=== PATIENT | female | born 1985 | race African-American/Black ===

== ENCOUNTER 2017-01-17 02:05 | Emergency (ER) | payer OTHER ==
[~2017-01-17] VITALS: Ht 167.6 cm; Wt 91.0 kg
[2017-01-17 02:08] VITALS: BP 136/89; PULSE 76; RESP 16; TEMP 98.5; O2SAT 100
[2017-01-17] MEDS ORDERED: DEXAMETHASONE SOD PHOS 20 MG/5 ML VIAL IM ONE (02:45)
[2017-01-17] MEDS ORDERED: KETOROLAC TROMETHAMINE 60 MG/2 ML (IM) VIAL IM ONE (02:45)
[2017-01-17] MEDS ORDERED: ORPHENADRINE INJ 60 MG/2 ML AMP IM ONE (02:45)
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
[2017-01-17] MEDS ORDERED: CYCL1TAB29 PO (03:59)
[2017-01-17] MEDS ORDERED: IBUP800T23 PO (03:59)
[2017-01-17] MEDS ORDERED: PRED50 PO (03:59)
== END 2017-01-17 04:08 | disposition home or self-care (01) ==
LOC: NEPD 02:05
DX: M62.838 Other muscle spasm (principal); W18.49XA Other slipping, tripping and stumbling without falling, initial encounter; Y92.003 Bedroom of unspecified non-institutional (private) residence as the place of occurrence of the external cause
CPT/HCPCS: 96372; 99284; J1100; J1885; J2360

== ENCOUNTER 2017-10-15 15:11 | Emergency (ER) | payer OTHER ==
[~2017-10-15] VITALS: Ht 165.1 cm; Wt 103.0 kg
[~2017-10-15 15:11] MED LIST: CYCL10TA PO; IBUP1TAB7 PO; PRED50 PO
[2017-10-15 15:19] VITALS: BP 159/69; PULSE 81; RESP 17; TEMP 98.1; O2SAT 97
--- NOTE | 2017-10-15 15:52 | RADRPT ---
EXAM DATE/TIME: 10/15/2017 15:36 [place] COMPARISON: No previous studies available for comparison. INDICATIONS : Pain post fall. MEDICAL HISTORY : None. SURGICAL HISTORY : None. ENCOUNTER: Initial ACUITY: 1 day PAIN SCORE: 10/10 LOCATION: Left Wrist. FINDINGS: Three view examination of the left wrist demonstrates no soft tissue swelling, dislocation, or fractu re. The carpal bones are in normal alignment. The joint spaces are maintained. Bony mineralization is normal. CONCLUSION: Unremarkable examination of the left wrist. Jesu Galindo MD on October 15, 2017 at 15:49 Board Certified Radiologist. This report was verified electronically.
--- NOTE | 2017-10-15 17:50 | PD ---
HPI Chief Complaint: Injury Time Seen by Provider: 17:43 Travel History International Travel<30 days: No Contact w/Intl Traveler<30days: No Traveled to known affect area: No History of Present Illness HPI 32-year-old female here for evaluation of left wrist pain. The patient reports that yesterday while lifting up a heavy duffel bag she twisted her wrist and felt immediate pain. Pain is moderate to severe, worse with movement and palpation, improved with rest. She has not taken anything for the pain. No paresthesias. No other injuries. She is right-hand dominant. [facility] Past Medical History Medical History: Denies Significant Hx Diminished Hearing: No Tetanus Vaccination: < 5 Years Influenza Vaccination: No ?: Unknown LMP: 09/17 : 2 Para: 2 Past Surgical History Oral Surgery: Yes Other Surgery: Yes (DENTAL EXTRACTIONS) Social History Alcohol Use: No Tobacco Use: No Substance Use: Yes (OCCASIONAL MARIJUANA) Allergies-Medications (Allergen,Severity, Reaction): Coded Allergies: penicillin G (Unverified Allergy, Mild, childhood reaction, 10/15/17) Reported Meds & Prescriptions Reported Meds & Active Scripts Active No Active Prescriptions or Reported Medications Review of Systems Except as stated in HPI: all other systems reviewed are Neg Physical Exam Narrative GENERAL: Well-developed, well-nourished, comfortable, no apparent distress. SKIN: Focused skin assessment warm/dry. CARDIOVASCULAR: Regular rate and rhythm. Bilateral distal radius pulses are brisk and equal. RESPIRATORY: No accessory muscle use. Clear to auscultation. Breath sounds equal bilaterally. GASTROINTESTINAL: Abdomen soft, non-tender, nondistended. Hepatic and splenic margins not palpable. MUSCULOSKELETAL: Left wrist with mild edema dorsally with normal range of motion , diffuse tenderness, no obvious bony deformity. All compartments in the left upper extremity are supple. Left hand is without deformity, without tenderness , with normal range of motion. Left arm is neurovascularly intact. NEUROLOGICAL: Awake and alert. No obvious cranial nerve deficits. Motor grossly within normal limits. Normal speech. PSYCHIATRIC: Appropriate mood and affect; insight and judgment normal. Data Data Last Documented VS Vital Signs Date Time Temp Pulse Resp B/P (MAP) Pulse Ox O2 Delivery O2 Flow Rate FiO2 10/15/17 15:19 98.1 81 17 159/69 (99) 97 Orders Orders Wrist, Complete ([id number]) (10/15/17 ) Ibuprofen (Motrin) (10/15/17 18:00) Splint Or Brace Apply/Monitor (10/15/17 17:47) MDM Medical Decision Making Medical Screen Exam Complete: Yes Emergency Medical Condition: Yes Differential Diagnosis Left wrist sprain versus fracture Narrative Course Left wrist x-ray read as unremarkable exam of the left wrist. Patient likely has a left wrist sprain. She will be placed in a Velcro wrist splint. PMD/orthopedic follow-up this week. She was advised on when to return to the emergency department. She verbalizes understanding and agreement with plan. Diagnosis Primary Impression: Left wrist sprain Qualified Codes: S63.502A - Unspecified sprain of left wrist, initial encounter Referrals: Don Allison MD 1 week Orthopedist Primary Care Physician 3 days Additional Instructions: Follow-up with a primary care physician or orthopedist Dr. Allison this week. Return to the emergency department for worsening symptoms or any other concerns. Scripts No Active Prescriptions or Reported Meds Disposition: 01 DISCHARGE HOME Condition: Stable Brando Russell MD Oct 15, 2017 17:50
[2017-10-15] MEDS ORDERED: IBUPROFEN 600 MG TAB PO ONE (18:00)
== END 2017-10-15 18:09 | disposition home or self-care (01) ==
LOC: NEPD 15:11
DX: S63.502A Unspecified sprain of left wrist, initial encounter (principal); X50.0XXA Overexertion from strenuous movement or load, initial encounter; Z88.0 Allergy status to penicillin
CPT/HCPCS: 73110; 99283; L3908

== ENCOUNTER 2018-07-12 10:54 | Inpatient (IN) ==
[2018-07-12] MEDS ORDERED: Clindamycin 600 mg/NS Premix 600 MG/50 ML PIGGYBACK IV.SIG PRN (13:16)
[2018-07-12] MEDS ORDERED: Citric Acid/Sodium Citrate Liq 30 ML UDC PO SCH (13:30)
[2018-07-12 14:57] LABS: Baso % (Auto) 0.5 % (0.0-2.0); Eos % (Auto) 0.4 % (0.0-4.0); Hematocrit 34.8 % (35.0-46.0); Hemoglobin 11.9 gm/dL (11.6-15.3); Lymph # (Auto) 1.5 th/mm3 (1.0-4.8); Lymph % (Auto) 16.9 % (9.0-44.0); Mean Corpuscular HGB Conc 34.3 % (32.0-36.0); Mean Corpuscular Hemoglobin 32.4 pg (27.0-34.0); Mean Corpuscular Volume 94.5 fL (80.0-100.0); Mean Platelet Volume 9.9 fL (7.0-11.0); Mono # (Auto) 0.7 th/mm3 (0.0-0.9); Mono % (Auto) 7.9 % (0.0-8.0); Neut # (Auto) 6.5 th/mm3 (1.8-7.7); Neut % (Auto) 74.3 % (16.0-70.0); Platelet Count 264 th/mm3 (150-450); Red Blood Count 3.68 mil/mm3 (4.00-5.30); Red Cell Distribution Width 15.4 % (11.6-17.2); White Blood Count 8.8 th/mm3 (4.0-11.0)
[2018-07-12 15:44] LABS: Amphetamine Screen,Urine Neg (Neg); Barbiturate Screen,Urine Neg (Neg); Cannabinoid Screen,Urine Pos (Neg); Cocaine Screen,Urine Neg (Neg)
[2018-07-12 15:47] LABS: Bacteria,Urine Rare /hpf; Bilirubin,Urine Negative (Negative); Clarity,Urine Clear (Clear); Color,Urine Yellow (Yellw/Straw); Glucose,Urine (UA) Negative (Negative); Leukocyte Esterase,Urine Negative (Negative); Mucus,Urine Few /lpf (Occasional); Nitrite,Urine Negative (Negative); Specific Gravity,Urine 1.006 (1.002-1.035); Squamous Epithelial Cell,Urine 1 /hpf (0-5)
[2018-07-12 15:53] LABS: Opiate Screen,Urine Neg (Neg)
[2018-07-12] MEDS ORDERED: Influenza (Quadrivalent) Vaccine 0.5 ML Syringe IM ONE (16:00)
[2018-07-12] MEDS ORDERED: Morphine Sulfate PF Inj 5 MG/10 ML Ampul ONE (18:24)
--- NOTE | 2018-07-12 19:06 | P.HPOB ---
History of Present Illness Primary Care Physician: Hakeem Dillard MD Chief Complaint: CS due to IUGR and Breech History of Present Illness: 33 yr old female at 37/0 IUGR, breech presentation, coming from OB diagnostics due to non reactive NST with decelerations. Pt is doing well. Scared due to previous NVD at term, and never PMH: Denies PSx: denies Allergies: Penicillin Medicines: none Social: denies drinking, smoking cigarettes, smokes marijuana occasionally. Weeks Gestation:: 37 Para: 2 : 3 - Inpatient Certification I certify that the inpatient services were ordered in accordance with Medicare regulations governing the order. This includes certification that hospital inpatient services are reasonable and necessary and in the case of services not specified as inpatient-only under 42 CFR 419.22(n), that they are appropriately provided as inpatient services in accordance to with the 2-midnight benchmark under 43 CFR 412.3(e) Estimated Total Length of Stay (Days): 3 Plans for Post Hospital Care: Home Review of Systems All other systems reviewed negative except as stated in HPI PMFSH - Medical / Surgical Hx Neg / Unobtainable Medical Problems Denied: Yes - Social History I have reviewed the patient's Social History: Yes - Tobacco History Second Hand Smoke Exposure: No Tobacco Use In Past 30 Days: No - Travel History Recent Travel in the [place] Within the Last 8 Weeks: No Recent Travel Out of the Country Within the Last 8 Weeks: No - Immunization History Hx Influenza Vaccine This Season: No Medications and Allergies Allergies Allergy/AdvReac Type Severity Reaction Status Date / Time penicillin G Allergy Mild childhood Verified 07/12/18 10:58 reaction Home Medications Medication Instructions Recorded Confirmed Type No Known Home Medications 07/12/18 07/12/18 History Active Medications: Active Medications Citric Acid/Sodium Citrate (Sodium Citrate/Citric Acid Liq) 30 ml PO SPOUTING INSTALLER ANDI Stop: 07/16/18 13:29 Clindamycin/Sodium Chloride (Cleocin 600 Mg/Ns Premix) 600 mg in 50 mls @ 100 mls/hr IV.SIG SPOUTING INSTALLER PRN PRN Reason: PRIOR TO PROCEDURE Stop: 07/16/18 13:15 Lactated Ringer's (Lr 1000 Ml Inj) 1,000 mls @ 150 mls/hr IV.CONT .Q6H40M ANDI Last Admin: 07/12/18 14:13 Dose: 150 mls/hr Exam Vital signs: Vital Signs 07/12/18 11:03 07/12/18 11:04 Temperature 98.9 F Pulse Rate 94 H Respiratory Rate 17 Blood Pressure 142/81 H Intake & Output 07/12/18 07/12/18 07/13/18 06:59 18:59 06:59 Weight 99.79 kg Other: Weight On Admission 99.79 kg Narrative: GENERAL: Well-nourished, well-developed patient. SKIN: Warm and dry. HEAD: Normocephalic and atraumatic. EYES: No scleral icterus. No injection or drainage. ENT: No nasal drainage noted. Mucous membranes pink. Airway patent. NECK: Supple, trachea midline. No JVD. CARDIOVASCULAR: Regular rate and rhythm without murmurs, gallops, or rubs. RESPIRATORY: Breath sounds equal bilaterally. No accessory muscle use. ABDOMEN/GI: Abdomen soft, non-tender, bowel sounds present, no rebound, no guarding FHT's: Category: 1 Baseline: 130 Reactive: yes Variability: moderate EXTREMITIES: No cyanosis or edema. BACK: Nontender without obvious deformity. No CVA tenderness. NEUROLOGICAL: Awake and alert. Motor and sensory grossly within normal limits. Normal speech. Results - Labs CBC & Chem 7: 07/12/18 14:10 Labs: Laboratory Results - last 24 hr 07/12/18 07/12/18 07/12/18 12:30 12:30 14:10 WBC 8.8 RBC 3.68 L Hgb 11.9 Hct 34.8 L MCV 94.5 MCH 32.4 MCHC 34.3 RDW 15.4 Plt Count 264 MPV 9.9 Neut % (Auto) 74.3 H Lymph % (Auto) 16.9 Bucks % (Auto) 7.9 Eos % (Auto) 0.4 Baso % (Auto) 0.5 Neut # (Auto) 6.5 Lymph # (Auto) 1.5 Bucks # (Auto) 0.7 Eos # (Auto) 0.0 Baso # (Auto) 0.0 WBC Differential . Differential Comment Auto diff final Urine Color Yellow Urine Clarity Clear Urine pH 7.0 Ur Specific Amma 1.006 Urine Protein Negative Urine Glucose (UA) Negative Urine Ketones Negative Urine Occult Blood Negative Urine Nitrate Negative Urine Bilirubin Negative Urine Urobilinogen Less than 2 Ur Leukocyte Esterase Negative Urine RBC 1 Urine WBC 1 Ur Squamous Epith Cells 1 Urine Bacteria Rare H Urine Mucus Few H Micro UA Comment Culture not ind Ur Microscopic Review Not Reportable Urine Culture Comments Culture not ind Urine Opiates Screen Neg Ur Barbiturates Screen Neg Ur Amphetamines Screen Neg U Benzodiazepines Scrn Neg Urine Cocaine Screen Neg U Cannabinoids Screen Pos H Blood Type Antibody Screen 07/12/18 14:10 WBC RBC Hgb Hct MCV MCH MCHC RDW Plt Count MPV Neut % (Auto) Lymph % (Auto) Bucks % (Auto) Eos % (Auto) Baso % (Auto) Neut # (Auto) Lymph # (Auto) Bucks # (Auto) Eos # (Auto) Baso # (Auto) WBC Differential Differential Comment Urine Color Urine Clarity Urine pH Ur Specific Amma Urine Protein Urine Glucose (UA) Urine Ketones Urine Occult Blood Urine Nitrate Urine Bilirubin Urine Urobilinogen Ur Leukocyte Esterase Urine RBC Urine WBC Ur Squamous Epith Cells Urine Bacteria Urine Mucus Micro UA Comment Ur Microscopic Review Urine Culture Comments Urine Opiates Screen Ur Barbiturates Screen Ur Amphetamines Screen U Benzodiazepines Scrn Urine Cocaine Screen U Cannabinoids Screen Blood Type O Positive Antibody Screen Negative Caprini VTE Risk Assessment Caprini VTE Risk Assessment: No/Low Risk (score <= 1) Caprini Risk Assessment Model: Point Value = 1 Point Value = 2 Point Value = 3 Point Value = 5 Age 41-60 Minor surgery BMI > 25 kg/m2 Swollen legs Varicose veins or History of unexplained or recurrent spontaneous Oral contraceptives or hormone replacement Sepsis (< 1 month) Serious lung disease, including pneumonia (< 1 month) Abnormal pulmonary function Acute myocardial infarction Congestive heart failure (< 1 month) History of inflammatory bowel disease Medical patient at bed rest Age 61-74 Arthroscopic surgery Major open surgery (> 45 min) Laparoscopic surgery (> 45 min) Malignancy Confined to bed (> 72 hours) Immobilizing plaster cast Central venous access Age >= 75 History of VTE Family history of VTE Factor V Leiden Prothrombin [id number] Lupus anticoagulant Anticardiolipin antibodies Elevated serum homocysteine Heparin-induced thrombocytopenia Other congenital or acquired thrombophilia Stroke (< 1 month) Elective arthroplasty Hip, pelvis, or leg fracture Acute spinal cord injury (< 1 month) Prophylaxis Regimen: Total Risk Factor Score Risk Level Prophylaxis Regimen 0-1 Low Early ambulation 2 Moderate Order ONE of the following: *Sequential Compression Device (SCD) *Heparin 5000 units SQ BID 3-4 Higher Order ONE of the following medications: *Heparin 5000 units SQ TID *Enoxaparin/Lovenox 40 mg SQ daily (WT < 150 kg, CrCl > 30 mL/min) *Enoxaparin/Lovenox 30 mg SQ daily (WT < 150 kg, CrCl > 10-29 mL/min) *Enoxaparin/Lovenox 30 mg SQ BID (WT < 150 kg, CrCl > 30 mL/min) AND/OR *Sequential Compression Device (SCD) 5 or more Highest Order ONE of the following medications: *Heparin 5000 units SQ TID (Preferred with Epidurals) *Enoxaparin/Lovenox 40 mg SQ daily (WT < 150 kg, CrCl > 30 mL/min) *Enoxaparin/Lovenox 30 mg SQ daily (WT < 150 kg, CrCl > 10-29 mL/min) *Enoxaparin/Lovenox 30 mg SQ BID (WT < 150 kg, CrCl > 30 mL/min) AND *Sequential Compression Device (SCD) Assessment and Plan - Diagnosis (1) IUGR (intrauterine growth restriction) Status: Acute (2) 37 weeks gestation of Code(s): Z3A.37 - 37 weeks gestation of Status: Acute - Plan 33 yr old female at 37/0 admitted for CS due to breech and IUGR with non reactive NST. Plan: - Admit to L&D - CS this afternoon - Penicillin allergy, will use clindamycin - GBS negative Pt seen and discussed with Dr. Molina - Attending Attestation Attending note: Patient seen examined evaluated history obtained-she was referred from OB diagnostics secondary to nonreactive heart rate-noted to have a deceleration and subsequently advised to have 2 hours of continuous monitor. We then received a phone call [facility] advises delivery. Patient was subsequently counseled for delivery secondary to breech presentation- alternatives benefits complications including but not limited to injury to the bowel bladder nerves blood vessels ureters any structures in the abdomen or pelvis infection hemorrhage morbidity mortality with surgery under anesthesia related procedures even remote possibility of risk of injury patient expressed verbal understanding. Secondary to full stomach and this is not an emergent case the biophysical was otherwise reassuring plan to wait till the stomach is empty and proceed with delivery
[2018-07-12] MEDS ORDERED: Glycopyrrolate Inj 1 MG/5 ML Syringe IV.PUSH ONE (19:25)
[2018-07-12] MEDS ORDERED: Phenylephrine/NS 1000 MCG/10ML Syringe IV.PUSH ONE (19:25)
[2018-07-12] MEDS ORDERED: Ketorolac Inj 30 MG/ML (IVP) Vial IV.PUSH ONE (19:25)
[2018-07-12] MEDS ORDERED: Oxytocin 30 Units/500ml Premix 30 UNITS/500 ML BAG IV.SIG ONE (20:53)
[2018-07-12] MEDS ORDERED: Zolpidem Tartrate 5 MG Tablet PO PRN (20:53)
[2018-07-12] MEDS ORDERED: Simethicone 80 MG Chew Tablet PO PRN (20:53)
[2018-07-12] MEDS ORDERED: Oxytocin 30 Units/500ml Premix 30 UNITS/500 ML BAG ONE (21:57)
--- NOTE | 2018-07-12 22:02 | P.OP ---
- Preoperative Diagnosis (1) IUGR (intrauterine growth restriction) (2) Non-reactive NST (non-stress test) (3) 37 weeks gestation of - Postoperative Diagnosis (1) IUGR (intrauterine growth restriction) (2) Non-reactive NST (non-stress test) (3) Delivery by section for footling breech presentation (4) 37 weeks gestation of Date of procedure: 07/12/18 Procedure: Primary low uterine segment transverse section Anesthesia: spinal Surgeon: Aishwarya Molina MD Mineral Economist: Rita Ortez Estimated blood loss (mL): 600 Pathology: none sent Operation and Findings: Patient presented to labor and delivery secondary to nonreactive NST-with a deceleration noted and OB diagnostics. Received a call from [facility] for delivery breech presentation patient aware will be delivery. Counseled on alternatives benefits complications please note documented in patient's history and physical. Patient was subsequently taken to the OR after informed consent obtained prepped and draped in normal sterile fashion. Pfannenstiel incision was made in the skin carried down to the underlying layer of fascia. The fascia was subsequently incised in the midline with a second knife. Extended laterally digitally. Superior aspect the fascia was grasped with Garland clamps x2 dissected under off from the underlying rectus muscle with curved Gonzalez scissors. The inferior aspect of the fascia was grasped with Steve clamps x2 dissected off from the underlying rectus muscle with care to avoid the bladder. The rectus muscle was gently blunt entrance into the peritoneum with care to avoid the bladder. The vesicouterine peritoneum was identified and bladder flap was created using Metzenbaum scissors and smooth pickup. [place] was placed. Incision on the uterus extended laterally digitally with care to avoid the vasculature. Amniotomy copious clear fluid. foot presenting with cord. Attempt to reduce the cord unsuccessful subsequently reached for the second foot. Both feet were subsequently grasped and then subsequently delivered to the level of the hips extension of the cord from the umbilicus. Continued to deliver to the level of the shoulders reduction of both arms delivered without incident. The vertex was noted to be significantly deflexed and subsequently flexed by merchandising assistant and from there able to deliver by placing pressure on the mandible and affect the delivery of the fetus. Delayed cord clamping. Viable infant male Apgars 5,6,7 ,and 8. Weight 5 pounds 12 ounces. Infant was handed to awaiting neonatology team. Cord blood collected. Placenta manually removed. Uterus cleared of all clot and debris. Uterus was delivered through the incision. Bilateral adnexa within normal. Proceeded to close the uterine incision with 1 chromic in a running locked fashion followed by second imbricating Lembert suture in its entirety. Good hemostasis noted. Once hemostasis was assured the uterus was repositioned into the pelvic abdominal cavity. Please note the paracolic gutters were cleared of all clot and debris prior to placing the uterus back into the pelvic abdominal cavity. The uterine incision was once again reevaluated noted to have good hemostasis. The fascia was closed with 1 Vicryl in a continuous fashion. Campers fascia was subsequently closed with interrupted 1 chromic [id number] sutures. The skin was closed with Monocryl on a Tej needle in its entirety. Patient tolerated procedure well sponge lap needle counts were noted to be correct x2. Patient taken to recovery room in stable condition. Baby to NICU for further monitoring
[2018-07-12] MEDS ORDERED: Naloxone Inj 0.4 MG/ML Vial IV.PUSH PRN (22:51)
[2018-07-13] MEDS ORDERED: Oxytocin 30 Units/500ml Premix 30 UNITS/500 ML BAG IV.SIG PRN (01:54)
[2018-07-13] MEDS: Senna/Docusate Sodium 8.6/50 MG Tablet PO PRN ×2 (04:17→23:29)
[2018-07-13 06:14] LABS: Baso % (Auto) 0.1 % (0.0-2.0); Hematocrit 30.8 % (35.0-46.0); Hemoglobin 10.2 gm/dL (11.6-15.3); Lymph # (Auto) 0.6 th/mm3 (1.0-4.8); Lymph % (Auto) 3.3 % (9.0-44.0); Mean Corpuscular HGB Conc 33.2 % (32.0-36.0); Mean Corpuscular Hemoglobin 31.4 pg (27.0-34.0); Mean Corpuscular Volume 94.6 fL (80.0-100.0); Mean Platelet Volume 9.3 fL (7.0-11.0); Mono # (Auto) 0.8 th/mm3 (0.0-0.9); Mono % (Auto) 4.4 % (0.0-8.0); Neut # (Auto) 15.9 th/mm3 (1.8-7.7); Neut % (Auto) 92.2 % (16.0-70.0); Platelet Count 245 th/mm3 (150-450); Red Blood Count 3.26 mil/mm3 (4.00-5.30); Red Cell Distribution Width 15.3 % (11.6-17.2); White Blood Count 17.3 th/mm3 (4.0-11.0)
--- NOTE | 2018-07-13 08:20 | P.PNOB ---
Subjective Interval history: 33 year old female s/p C/S at 37 wks gestation, POD1. AFVSS. Patient reports she is feeling well. Bleeding is decreasing and pain is well- controlled. Baby currently in the NICU. Ambulating without difficulties. She is tolerating a diet without nausea or vomiting. She has not had a bowel movement. She has not passed gas. Denies chest pain, dysuria, shortness of breath, or calf pain. Objective Vital Signs/I&O: Vital Signs 07/12/18 11:03 07/12/18 11:04 07/12/18 21:00 Temperature 98.9 F 97.9 F Pulse Rate 94 H 72 Respiratory Rate 18 Blood Pressure 142/81 H 115/57 L 07/12/18 21:18 07/12/18 21:32 07/12/18 21:48 Temperature Pulse Rate 79 77 75 Respiratory Rate 18 Blood Pressure 122/72 120/75 127/63 07/12/18 22:45 07/13/18 03:00 07/13/18 05:42 Temperature 98.5 F 98.6 F 98.2 F Pulse Rate 81 70 80 Respiratory Rate Blood Pressure 137/84 150/88 H 118/85 Intake & Output 07/12/18 07/13/18 07/13/18 18:59 06:59 18:59 Weight 99.79 kg Other: Weight On Admission 99.79 kg Result Diagrams: 07/13/18 05:04 Objective Remarks: GENERAL: Well-nourished, well-developed patient. CARDIOVASCULAR: Regular rate and rhythm without murmurs, gallops, or rubs. RESPIRATORY: Breath sounds equal bilaterally. No accessory muscle use. ABDOMEN/GI: Abdomen soft, non-tender, bowel sounds present. Incision: Covered in bandage Fundus: Firm, non-tender at umbilicus. GENITOURINARY: Light to moderate bleeding. EXTREMITIES: No cyanosis or edema, non-tender, without signs of DVT. Medications and IVs: Active Medications Citric Acid/Sodium Citrate (Sodium Citrate/Citric Acid Liq) 30 ml PO [employer] ANDI Stop: 07/16/18 13:29 Last Admin: 07/12/18 19:14 Dose: 30 ml Diphenhydramine HCl (Benadryl Inj) 25 mg IV.PUSH Q6H PRN PRN Reason: MILD TO MODERATE ITCHING Stop: 07/13/18 22:50 Last Admin: 07/13/18 06:07 Dose: 25 mg Diphenhydramine HCl (Benadryl) 50 mg PO Q6H PRN PRN Reason: MILD TO MODERATE ITCHING Stop: 07/13/18 22:50 Diphtheria/Pertussis/Tetanus Vacc (Boostrix Vaccine Inj) 0.5 ml IM .ONCE ONE Stop: 07/13/18 16:01 Clindamycin/Sodium Chloride (Cleocin 600 Mg/Ns Premix) 600 mg in 50 mls @ 100 mls/hr IV.SIG [employer] PRN PRN Reason: PRIOR TO PROCEDURE Stop: 07/16/18 13:15 Last Admin: 07/12/18 19:13 Dose: 100 mls/hr Lactated Ringer's (Lr 1000 Ml Inj) 1,000 mls @ 150 mls/hr IV.CONT .Q6H40M [facility] Last Admin: 07/13/18 04:26 Dose: Not Given Lactated Ringer's (Lr 1000 Ml Inj) 1,000 mls @ 100 mls/hr IV.CONT .Q10H [facility] Stop: 07/13/18 21:53 Last Admin: 07/13/18 04:15 Dose: 100 mls/hr Oxytocin (Pitocin 30 Units/Ns 500 Ml Premix) 30 units in 500 mls @ 100 mls/hr IV.SIG UNSCH PRN PRN Reason: Heavy bleeding Measles/Mumps/Rubella Vaccine Live (M-M-R Ii Vaccine Inj) 0.5 ml SQ .ONCE ONE Stop: 07/13/18 16:01 Miscellaneous Information (Misc Nursing Information) 1 each OTHER UNSCH PRN PRN Reason: SEE LABEL COMMENTS Stop: 07/13/18 22:50 Miscellaneous Information (Misc Nursing Information) 1 each OTHER UNSCH PRN PRN Reason: SEE LABEL COMMENTS Stop: 07/13/18 22:50 Naloxone HCl (Narcan Inj) 0.4 mg IV.PUSH UNSCH PRN PRN Reason: SEE LABEL COMMENTS Stop: 07/13/18 22:50 Ondansetron HCl (Zofran Inj) 4 mg IV.PUSH Q6H PRN PRN Reason: NAUSEA OR VOMITING Oxycodone/Acetaminophen (Percocet 5/325 Mg) 1 tab PO Q4H PRN PRN Reason: PAIN SCALE 3 TO 5 Last Admin: 07/13/18 04:16 Dose: 1 tab Oxycodone/Acetaminophen (Percocet 5/325 Mg) 2 tab PO Q4H PRN PRN Reason: PAIN SCALE 6 TO 10 Senna/Docusate Sodium (Yasmeen-Colace) 2 tab PO Q12H PRN PRN Reason: CONSTIPATION Last Admin: 07/13/18 04:17 Dose: 2 tab Simethicone (Mylicon Chew) 80 mg PO QID PRN PRN Reason: FLATULENCE Sodium Chloride (Ns Flush) 2 ml IV.FLUSH BID ANDI Last Admin: 07/12/18 22:52 Dose: Not Given Sodium Chloride (Ns Flush) 2 ml IV.FLUSH PRN PRN PRN Reason: FLUSH AFTER USING IV ACCESS Last Admin: 07/13/18 06:08 Dose: 2 ml Zolpidem Tartrate (Ambien) 5 mg PO HS PRN PRN Reason: INSOMNIA Assessment and Plan - Diagnosis (1) S/P Code(s): Z98.891 - History of uterine scar from previous surgery Status: Acute - Plan 33 yo female s/p C/S due to IUGR and breech, POD 1 - AFVSS - Continue routine care - Motrin and Percocet PRN pain - Encourage OOB - Pelvic rest x 6 wks. Will need 1 week incision check. - Contraception: Undecided - Anticipate D/C 1-[address] Molina
[2018-07-13] MEDS: Ibuprofen 600 MG Tablet PO PRN ×2 (14:14→23:25)
[2018-07-13] MEDS ORDERED: Measles/Mumps/Rubella Vaccine Inj 0.5 ML Vial SQ ONE (16:00)
[2018-07-13] MEDS ORDERED: Diphtheria/Tetanus/Pertussis Vaccine Inj 0.5 ML Syringe IM ONE (16:00)
--- NOTE | 2018-07-14 07:17 | P.PNOB ---
Subjective Interval history: 33 year old female s/p C/S at 37 wks gestation, POD2. AFVSS. Patient reports she is feeling well. Bleeding is decreasing and pain is well- controlled. Baby currently in the NICU. Ambulating without difficulties. She is tolerating a diet without nausea or vomiting. She has not had a bowel movement. She has passed gas. Denies chest pain, dysuria, shortness of breath, or calf pain. Objective Vital Signs/I&O: Vital Signs 07/13/18 07:55 07/13/18 12:00 07/13/18 16:00 Temperature 98.0 F 98.9 F 98.6 F Pulse Rate 68 80 76 Respiratory Rate 16 18 18 Blood Pressure 133/68 133/68 114/64 07/13/18 20:00 Temperature 98.3 F Pulse Rate 82 Respiratory Rate 18 Blood Pressure 140/77 Result Diagrams: 07/13/18 05:04 Objective Remarks: GENERAL: Well-nourished, well-developed patient. CARDIOVASCULAR: Regular rate and rhythm without murmurs, gallops, or rubs. RESPIRATORY: Breath sounds equal bilaterally. No accessory muscle use. ABDOMEN/GI: Abdomen soft, non-tender, bowel sounds present. Incision: Clean, dry and intact. Fundus: Firm, non-tender at umbilicus. GENITOURINARY: Light to moderate bleeding. EXTREMITIES: No cyanosis or edema, non-tender, without signs of DVT. Medications and IVs: Active Medications Citric Acid/Sodium Citrate (Sodium Citrate/Citric Acid Liq) 30 ml PO GANG R[employer]ER [facility] Stop: 07/16/18 13:29 Last Admin: 07/12/18 19:14 Dose: 30 ml Clindamycin/Sodium Chloride (Cleocin 600 Mg/Ns Premix) 600 mg in 50 mls @ 100 mls/hr IV.SIG GANG RIDER PRN PRN Reason: PRIOR TO PROCEDURE Stop: 07/16/18 13:15 Last Admin: 07/12/18 19:13 Dose: 100 mls/hr Lactated Ringer's (Lr 1000 Ml Inj) 1,000 mls @ 150 mls/hr IV.CONT .Q6H40M [facility] Last Admin: 07/13/18 04:26 Dose: Not Given Oxytocin (Pitocin 30 Units/Ns 500 Ml Premix) 30 units in 500 mls @ 100 mls/hr IV.SIG UNSCH PRN PRN Reason: Heavy bleeding Ibuprofen (Motrin) 600 mg PO Q8H PRN PRN Reason: PAIN SCALE 1-2 OR TEMP> 100.5F Last Admin: 07/13/18 23:25 Dose: 600 mg Ondansetron HCl (Zofran Inj) 4 mg IV.PUSH Q6H PRN PRN Reason: NAUSEA OR VOMITING Oxycodone/Acetaminophen (Percocet 5/325 Mg) 1 tab PO Q4H PRN PRN Reason: PAIN SCALE 3 TO 5 Last Admin: 07/13/18 09:36 Dose: 1 tab Oxycodone/Acetaminophen (Percocet 5/325 Mg) 2 tab PO Q4H PRN PRN Reason: PAIN SCALE 6 TO 10 Last Admin: 07/14/18 03:53 Dose: 2 tab Senna/Docusate Sodium (Yasmeen-Colace) 2 tab PO Q12H PRN PRN Reason: CONSTIPATION Last Admin: 07/13/18 23:29 Dose: 2 tab Simethicone (Mylicon Chew) 80 mg PO QID PRN PRN Reason: FLATULENCE Sodium Chloride (Ns Flush) 2 ml IV.FLUSH BID ANDI Last Admin: 07/13/18 23:30 Dose: 2 ml Sodium Chloride (Ns Flush) 2 ml IV.FLUSH PRN PRN PRN Reason: FLUSH AFTER USING IV ACCESS Last Admin: 07/13/18 06:08 Dose: 2 ml Zolpidem Tartrate (Ambien) 5 mg PO HS PRN PRN Reason: INSOMNIA Assessment and Plan - Diagnosis (1) S/P Code(s): Z98.891 - History of uterine scar from previous surgery Status: Acute - Plan 33 yo female s/p C/S due to IUGR and breech, POD 2 - AFVSS - Continue routine care - Motrin and Percocet PRN pain - Encourage OOB - Pelvic rest x 6 wks. Will need 1 week incision check. - Contraception: IUD, will discuss with OB provider - Anticipate D/C tomorrow conchis Whitaker
[2018-07-14] MEDS: Ibuprofen 600 MG Tablet PO PRN ×2 (10:02→19:12)
[2018-07-14] MEDS: Senna/Docusate Sodium 8.6/50 MG Tablet PO PRN (14:41)
[2018-07-15] MEDS: Ibuprofen 600 MG Tablet PO PRN ×2 (04:19→14:06)
[2018-07-15] MEDS: Senna/Docusate Sodium 8.6/50 MG Tablet PO PRN ×2 (08:47→09:19)
--- NOTE | 2018-07-15 09:11 | P.PNOB ---
Subjective Post op day: 3 Interval history: Postoperative day number 3. AFVSS overnight. Pain well-controlled. Incision not draining. Decreased lochia. Denies dysuria. No breast tenderness. She is feeding the baby via bottle. Appetite good. No nausea or vomiting. + flatus. no bowel movement. Ambulating well. Denies calf pain, shortness of breath, or cough. Otherwise, she is doing well this morning and has no other complaints. Objective Vital Signs/I&O: Vital Signs 07/14/18 20:00 Temperature 97.9 F Pulse Rate 85 Respiratory Rate 18 Blood Pressure 143/84 H Result Diagrams: 07/13/18 05:04 Objective Remarks: GENERAL: Well-nourished, well-developed patient. CARDIOVASCULAR: Regular rate and rhythm without murmurs, gallops, or rubs. RESPIRATORY: Breath sounds equal bilaterally. No accessory muscle use. ABDOMEN/GI: Abdomen soft, non-tender, bowel sounds present. Incision: Clean, dry and intact. Fundus: Firm, non-tender at umbilicus. GENITOURINARY: Light to moderate bleeding. EXTREMITIES: No cyanosis or edema, non-tender, without signs of DVT. Medications and IVs: Active Medications Citric Acid/Sodium Citrate (Sodium Citrate/Citric Acid Liq) 30 ml PO VAMP [employer]ROATER [facility] Stop: 07/16/18 13:29 Last Admin: 07/12/18 19:14 Dose: 30 ml Diphenhydramine HCl (Benadryl) 50 mg PO Q6H PRN PRN Reason: itching Last Admin: 07/14/18 10:03 Dose: 50 mg Clindamycin/Sodium Chloride (Cleocin 600 Mg/Ns Premix) 600 mg in 50 mls @ 100 mls/hr IV.SIG VAMP THROATER PRN PRN Reason: PRIOR TO PROCEDURE Stop: 07/16/18 13:15 Last Admin: 07/12/18 19:13 Dose: 100 mls/hr Lactated Ringer's (Lr 1000 Ml Inj) 1,000 mls @ 150 mls/hr IV.CONT .Q6H40M [facility] Last Admin: 07/13/18 04:26 Dose: Not Given Oxytocin (Pitocin 30 Units/Ns 500 Ml Premix) 30 units in 500 mls @ 100 mls/hr IV.SIG UNSCH PRN PRN Reason: Heavy bleeding Ibuprofen (Motrin) 600 mg PO Q8H PRN PRN Reason: PAIN SCALE 1-2 OR TEMP> 100.5F Last Admin: 07/15/18 04:19 Dose: 600 mg Ondansetron HCl (Zofran Inj) 4 mg IV.PUSH Q6H PRN PRN Reason: NAUSEA OR VOMITING Oxycodone/Acetaminophen (Percocet 5/325 Mg) 1 tab PO Q4H PRN PRN Reason: PAIN SCALE 3 TO 5 Last Admin: 07/14/18 14:42 Dose: 1 tab Oxycodone/Acetaminophen (Percocet 5/325 Mg) 2 tab PO Q4H PRN PRN Reason: PAIN SCALE 6 TO 10 Last Admin: 07/15/18 08:47 Dose: 2 tab Senna/Docusate Sodium (Yasmeen-Colace) 2 tab PO Q12H PRN PRN Reason: CONSTIPATION Last Admin: 07/14/18 14:41 Dose: 2 tab Simethicone (Mylicon Chew) 80 mg PO QID PRN PRN Reason: FLATULENCE Sodium Chloride (Ns Flush) 2 ml IV.FLUSH BID ANDI Last Admin: 07/14/18 23:12 Dose: Not Given Sodium Chloride (Ns Flush) 2 ml IV.FLUSH PRN PRN PRN Reason: FLUSH AFTER USING IV ACCESS Last Admin: 07/13/18 06:08 Dose: 2 ml Zolpidem Tartrate (Ambien) 5 mg PO HS PRN PRN Reason: INSOMNIA Assessment and Plan - Diagnosis (1) S/P Code(s): Z98.891 - History of uterine scar from previous surgery Status: Acute - Plan 33 yo female s/p C/S due to IUGR and breech, POD 3 - AFVSS - Continue routine care - Motrin and Percocet PRN pain - Encourage OOB - Pelvic rest x 6 wks. Will need 1 week incision check. - Contraception: IUD, will discuss with OB provider - Anticipate D/C today conchis Grimm
[2018-07-15 09:54] VITALS: BP 137/77; PULSE 80; RESP 20; TEMP 98.6
== END 2018-07-15 15:10 | disposition home or self-care (01) | DRG 787 ==
LOC: HOBED 10:54 → H1EA 11:15 → H2E 12:14 → H1EA 22:13
PROVIDERS: ADMIT Obstetrics & Gynecology; ATTEND Obstetrics & Gynecology
CPT/HCPCS: 76818; 76820; 76821; 80307; 81001; 85025; 86850; 86900; 86901; 99285; J0131; J1100; J1200; J1885; J2274; J2370; J2405; J2590; J7120; Q0163